=== PATIENT | female | born 2005 | race Caucasian/White ===

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

== ENCOUNTER → 2025-01-17 | Outpatient (REF) | payer OTHER | LOC: M LAB REF 19:20 | PROVIDERS: ATTEND Physician Assistant | DX: R30.0 Dysuria (principal) ==

== ENCOUNTER → 2025-03-01 | Outpatient (CLI) | payer OTHER ==
[2025-03-01 13:19] LABS: URINE PREG TEST NEGATIVE (NEGATIVE)
[2025-03-01 13:34] LABS: APPEARANCE, URINE CLEAR (CLEAR); BACTERIA, URINE AUTO NEGATIVE (NEGATIVE); BILIRUBIN, URINE AUTO NEGATIVE (NEGATIVE); BLOOD, URINE BLOOD NEGATIVE (NEGATIVE); COLOR, URINE YELLOW (YELLOW); GLUCOSE, URINE (UA) AUTO NEGATIVE (NEGATIVE); KETONE, URINE AUTO NEGATIVE (NEGATIVE); LEUKOCYTE ESTERASE, URINE AUTO NEGATIVE (NEGATIVE); MUCUS, URINE SMALL (NEGATIVE); NITRITE, URINE AUTO NEGATIVE (NEGATIVE); PROTEIN, URINE AUTO NEGATIVE (NEGATIVE); RBC, URINE AUTO 0 /HPF (0-3); SQUAMOUS EPITHELIAL CELL UR AU 1 /HPF (0-6); UROBILINOGEN, URINE AUTO 0.2 mg/dL (0.0-2.0); WBC, URINE AUTO 2 /HPF (0-3)
[2025-03-01 15:06] LABS: GC DNA AMPLIFICATION NEGATIVE (NEGATIVE)
== END ==
LOC: M RAD 11:54
PROVIDERS: ATTEND Pediatrics
DX: M54.50 Low back pain, unspecified (principal)

== ENCOUNTER 2025-07-17 13:33 | Emergency (ER) | payer OTHER ==
[~2025-07-17] VITALS: Ht 166.4 cm; Wt 66.9 kg
[~2025-07-17 13:33] MED LIST changes: +PROZ10CA11 PO; -PROZ10CA7 PO; +RALTEGRAVIR 400 MG TAB PO SCH
[2025-07-17] MEDS ORDERED: IUD (13:47)
[2025-07-17] MEDS: TETANUS/DIPHTH/ACEL. PERTUSSIS 0.5 ML SYR IM.IMMUN ONE (15:09)
[2025-07-17 15:22] LABS: BASO # 0.0 10^3/uL (0.0-0.2); BASO % 0.5 % (0.0-1.0); EOS # 0.2 10^3/uL (0.0-0.5); EOS % 2.3 % (0.0-3.0); LYMPH # 2.0 10^3/uL (1.5-5.0); LYMPH % 26.6 % (24.0-44.0); MONO # 0.4 10^3/uL (0.0-0.8); MONO % 4.8 % (2.0-8.0); NEUTROPHILS # 4.8 10^3/uL (1.5-8.5); NEUTROPHILS % 65.8 % (36.0-66.0); PLATELET COUNT, AUTOMATED 272 10^3/uL (150-450)
[2025-07-17 15:50] LABS: ALT/SGPT 13 U/L (7.0-40); AST/SGOT 20 U/L (<34); CALCIUM LEVEL 10.0 MG/DL (8.5-10.1); CARBON DIOXIDE LEVEL 25 MMOL/L (20-31); CHLORIDE LEVEL 105 MMOL/L (98-107); CREATININE FOR GFR 0.74 MG/DL (0.55-1.30); GLOMERULAR FILTRATION RATE > 90.0 (>60); POTASSIUM SERUM 3.8 MMOL/L (3.5-5.1); SODIUM LEVEL 142 MMOL/L (136-145)
[2025-07-17 15:52] LABS: HEPATITIS B SURFACE ANTIBODY NEGATIVE (POSITIVE)
[2025-07-17 15:56] LABS: HCG, SERUM QUALITATIVE NEGATIVE (NEGATIVE)
[2025-07-17 16:16] LABS: HIV 1&2 SCREEN NEGATIVE (NEGATIVE)
[2025-07-17 16:25] LABS: HEPATITIS C VIRUS ABY INDEX < 0.02 INDEX (<0.8)
[2025-07-17] MEDS ORDERED: EXPOSURE KIT-ADULT 7 DAY SUPPLY PO ONE (17:00)
[2025-07-17] MEDS ORDERED: HEPATITIS B VACCINE 20 MCG/ML IM.IMMUN ONE (17:00)
[2025-07-17] MEDS ORDERED: ONDA-282 PO (17:03)
[2025-07-17] MEDS ORDERED: RALT40TA PO (17:03)
[2025-07-17] MEDS ORDERED: EMTR1TAB16 PO (17:03)
[2025-07-17 18:23] VITALS: BP 124/72; TEMP 98.4; O2SAT 100
[2025-07-17] MEDS: RALTEGRAVIR 400 MG TAB PO ONE (18:24)
[2025-07-17] MEDS: HEPATITIS B VACCINE 10 MCG/0.5 ML SYRINGE (FOR ALL OTHER PTS) IM.IMMUN ONE (18:25)
== END 2025-07-17 18:31 | disposition home or self-care (01) ==
LOC: M ED 13:33
DX: Z77.21 Contact with and (suspected) exposure to potentially hazardous body fluids (principal); Z79.1 Long term (current) use of non-steroidal anti-inflammatories (NSAID); Z79.899 Other long term (current) drug therapy

== ENCOUNTER → 2025-07-26 | Outpatient (REF) | payer OTHER ==
[~2025-07-26] MED LIST changes: +EMTR1TAB16 PO; +IUD; +RALT40TA PO; -RALTEGRAVIR 400 MG TAB PO SCH
[2025-07-26 13:43] LABS: PLATELET COUNT, AUTOMATED 262 10^3/uL (150-450)
[2025-07-26 13:59] LABS: ESTIMATED AVERAGE GLUCOSE 88.0 MG/DL (60-110)
[2025-07-26 14:05] LABS: ALT/SGPT 14 U/L (7.0-40); AST/SGOT 20 U/L (<34); CALCIUM LEVEL 9.9 MG/DL (8.5-10.1); CARBON DIOXIDE LEVEL 27 MMOL/L (20-31); CHLORIDE LEVEL 104 MMOL/L (98-107); CHOLESTEROL LEVEL 144 MG/DL (<200); CHOLESTEROL RISK RATIO 2.53 (<5); CREATININE FOR GFR 0.90 MG/DL (0.55-1.30); GLOMERULAR FILTRATION RATE > 90.0 (>60); LDL CHOLESTEROL 73.7 MG/DL (<100); NON-HDL-C 87.1 MG/DL; POTASSIUM SERUM 3.6 MMOL/L (3.5-5.1); SODIUM LEVEL 142 MMOL/L (136-145); TRIGLYCERIDES LEVEL 67 MG/DL (<150)
[2025-07-26 14:09] LABS: LUTEINIZING HORMONE 4.5 mIU/ML; PROGESTERONE 0.63 NG/ML; PROLACTIN 5.56 NG/ML
[2025-07-26 14:10] LABS: FREE T4 1.21 NG/DL (0.83-1.43)
[2025-07-28 08:08] LABS: FREE ANDROGEN INDEX 3.0 (0.4-8.4); SEX HORM BINDING GLOB 46.7 nmol/L (24.6-122.0); TESTOSTERONE 41 ng/dL (13-71)
== END ==
LOC: M SFHCCLAY 12:35
PROVIDERS: ATTEND Nurse Practitioner Family
DX: E28.2 Polycystic ovarian syndrome (principal); F41.8 Other specified anxiety disorders